=== PATIENT | female | born 1985 | race Caucasian/White ===

== ENCOUNTER 2016-11-19 16:36 | Emergency (ER) | payer BC ==
[2016-11-19 16:42] VITALS: TEMP 98.1; BMI 28.1
[2016-11-19] MEDS ORDERED: METOCLOPRAMIDE HCL INJECTION 10 MG/2 ML VIAL IVPB ONE (17:13)
[2016-11-19] MEDS ORDERED: ACETAMINOPHEN 1000 MG/100 ML VIAL (NON FORMULARY) IVPB ONE (17:13)
[2016-11-19] MEDS ORDERED: SODIUM CHLORIDE 1,000 ML IV STA (17:13)
[2016-11-19] MEDS ORDERED: ACETAMINOPHEN INJECTION 100 ML IVPB ONE (17:24)
[2016-11-19] MEDS ORDERED: METOCLOPRAMIDE HCL INJECTION 10 MG/2 ML VIAL ONE (17:24)
--- NOTE | 2016-11-19 17:28 | PDOC ---
History of Present Illness - General History Source: Patient Exam Limitations: No Limitations - History of Present Illness Initial Comments: 11/19/16 17:32 The patient is a 31 year old female, with a significant past medical history of migraines, who presents to the emergency department with blurred vision, headache, numbness in mouth and tingling in her hands bilaterally onset today 60 -90 minutes prior to presentation. She states that she was at work when the symptoms started. She describes her headache as a pressure, localized in the back of her head, moderate in severity, without radiation. The pain is exacerbated when she sees bright lights. She reports that she took Tylenol after the symptoms started with minimal relief of her symptoms. She describes her numbness as more pronounced on the right hand than the left and notes that her blurred vision has resolved. She notes that she noticed that at the time her pupils were irregular, one being bigger than the other, but that has resolved. She also notes that she has a history of migraines which causes her to have left sided numbness and visual flashes, which usually resolves when she takes a Tylenol or Topomax. She states that she was on Topomax for her migraines but her PMD took her off the medication over a year ago and she had not suffered a migraine since. She denies any family history of neurological disorders. The patient denies chest pain, shortness of breath and dizziness. Denies fever, chills, nausea, vomit, diarrhea and constipation. Allergies: None Past surgical history: None reported Social history: No alcohol, tobacco or drug use reported <Chino Poe - Last Filed: 11/19/16 17:34> - General History Source: Patient Exam Limitations: No Limitations <Evelio Hodges - Last Filed: 11/21/16 15:00> - General Chief Complaint: CVA/TIA Stated Complaint: NUMBNESS/SLURRED SPEECH Time Seen by Provider: 11/19/16 16:54 Past History <Chino Poe - Last Filed: 11/19/16 17:34> - Past Medical History Other medical history: MIGRAINES - Psycho/Social/Smoking Cessation Hx Anxiety: No Suicidal Ideation: No Smoking History: Never smoked Hx Alcohol Use: Yes (SOCIAL) Drug/Substance Use Hx: No Substance Use Type: None <Evelio Hodges - Last Filed: 11/21/16 15:00> - Past Medical History Allergies/Adverse Reactions: Allergies Allergy/AdvReac Type Severity Reaction Status Date / Time No Known Allergies Allergy Verified 11/19/16 16:42 Home Medications: Ambulatory Orders Acetaminophen [Tylenol] 650 mg PO Q4H PRN #30 tablet 11/19/16 Metoclopramide HCl [Reglan] 10 mg PO Q6H PRN #20 tablet 11/19/16 Review of Systems - Review of Systems Able to Perform ROS?: Yes Comments:: 11/19/16 17:32 GENERAL/CONSTITUTIONAL: No fever or chills. No weakness. HEAD, EYES, EARS, NOSE AND THROAT: +Blurred vision. No ear pain or discharge. No sore throat. CARDIOVASCULAR: No chest pain or shortness of breath RESPIRATORY: No cough, wheezing, or hemoptysis. GASTROINTESTINAL: No nausea, vomiting, diarrhea or constipation. GENITOURINARY: No dysuria, frequency, or change in urination. MUSCULOSKELETAL: No joint or muscle swelling or pain. No neck or back pain. SKIN: No rash NEUROLOGIC: +Headache, tingling on bilateral hands. No vertigo, loss of consciousnes ENDOCRINE: No increased thirst. No abnormal weight change HEMATOLOGIC/LYMPHATIC: No anemia, easy bleeding, or history of blood clots. ALLERGIC/IMMUNOLOGIC: No hives or skin allergy. <Chino Poe - Last Filed: 11/19/16 17:34> *Physical Exam - Vital Signs Last Vital Signs Temp Pulse Resp BP Pulse Ox 98.1 F 101 H 20 149/91 100 11/19/16 16:39 11/19/16 16:39 11/19/16 16:39 11/19/16 16:39 11/19/16 16:39 - Physical Exam Comments: 11/19/16 17:32 GENERAL: Awake, alert, and fully oriented, in no acute distress HEAD: No signs of trauma, normocephalic, atraumatic EYES: PERRLA, EOMI, sclera anicteric, conjunctiva clear ENT: Auricles normal inspection, hearing grossly normal, nares patent, oropharynx clear without exudates. Moist mucosa NECK: Normal ROM, supple, no lymphadenopathy, JVD, or masses LUNGS: No distress, speaks full sentences, clear to auscultation bilaterally HEART: Regular rate and rhythm, normal S1 and S2, no murmurs, rubs or gallops, peripheral pulses normal and equal bilaterally. ABDOMEN: Soft, nontender, normoactive bowel sounds. No guarding, no rebound. No masses EXTREMITIES: Normal inspection, Normal range of motion, no edema. No clubbing or cyanosis. NEUROLOGICAL: Cranial nerves II through XII grossly intact. Normal speech, normal gait, no focal sensorimotor deficits. Subjective parasthesias along the left upper extremity. 5/5 strength in upper and lower extremities bilaterally. No pronator drift. No Dysmetria. Normal heel to [place]. SKIN: Warm, Dry, normal turgor, no rashes or lesions noted. <Chino Poe - Last Filed: 11/19/16 17:34> - Vital Signs Last Vital Signs Temp Pulse Resp BP Pulse Ox 98.1 F 101 H 20 149/91 100 11/19/16 16:39 11/19/16 16:39 11/19/16 16:39 11/19/16 16:39 11/19/16 16:39 - Physical Exam Comments: 11/21/16 14:59 CORRECTION TO SCRIBE NOTE: CN II- XII is intact, not grossly intact. <Evelio Hodges - Last Filed: 11/21/16 15:00> ED Treatment Course - LABORATORY CBC & Chemistry Diagram: 11/19/16 17:20 - Medications Given in the ED: ED Medications Discontinued Medications Generic Name Dose Route Start Last Admin Trade Name Manoloq PRN Reason Stop Dose Admin Acetaminophen 1,000 mg 11/19/16 17:13 11/19/16 17:28 Ofirmev Injection - IVPB 11/19/16 17:14 1,000 mg ONCE ONE Administration Metoclopramide HCl 10 mg 11/19/16 17:13 11/19/16 17:28 Reglan Injection - IVPB 11/19/16 17:14 10 mg ONCE ONE Administration <Cihno Poe - Last Filed: 11/19/16 17:34> - LABORATORY CBC & Chemistry Diagram: 11/19/16 17:45 11/19/16 17:20 <Evelio Hodges - Last Filed: 11/21/16 15:00> Medical Decision Making - Medical Decision Making 11/19/16 17:42 A portion of this note was documented by scribe services under my direction. I have reviewed the details of the note, within reason, and agree with the documentation with the following case summary and management plan written by me. Patient treated in the ED. Nursing notes are reviewed and incorporated into the medical decision-making. Vital signs reviewed. Peripheral IV access obtained by the nurse, laboratory studies are drawn and sent, reviewed and interpreted by myself. Vital Signs Temp Pulse Resp BP Pulse Ox 98.1 F 101 H 20 149/91 100 11/19/16 16:39 11/19/16 16:39 11/19/16 16:39 11/19/16 16:39 11/19/16 16:39 31-year-old female with past medical history of complex migraines presents with headache and atypical neural features. Patient reports that she was doing well this morning. When she was at work, at approximately 3 PM, patient start develop flashes and a right eye and an occipital headache. She felt tingling in her left upper extremities. She also felt some numbness sensation in her mouth and her tongue. She also reports some intermittent right upper and right lower extremity tingling as well. Then headache is worsened and the patient came to the ED. Patient reports that she was on Topamax for migraines prior in the past but discontinued a year ago in order to get . Patient reported that her typical migraines consists of developing flashes in the right eye, posterior headaches, and left-sided numbness. Patient has no family history of stroke. Patient wishes to defer on head CT given the radiation exposure. I agree that we can defer on head CT at this time. This is likely complex migraines. We'll obtain labs and treat symptoms and reassess. 11/19/16 18:16 CBC, BMP 11/19/16 17:45 11/19/16 17:20 CMP Sodium 138 mmol/L (136-145) 11/19/16 17:20 Potassium 4.0 mmol/L (3.5-5.1) 11/19/16 17:20 Chloride 102 mmol/L (98-107) 11/19/16 17:20 Carbon Dioxide 24 mmol/L (21-32) 11/19/16 17:20 Anion Gap 12 (8-16) 11/19/16 17:20 BUN 10 mg/dL (7-18) 11/19/16 17:20 Creatinine 0.7 mg/dL (0.55-1.02) 11/19/16 17:20 Creat Clearance w eGFR > 60 (>60) 11/19/16 17:20 Random Glucose 80 mg/dL (74-106) 11/19/16 17:20 Calcium 8.6 mg/dL (8.5-10.1) 11/19/16 17:20 Total Bilirubin 0.6 mg/dL (0.2-1.0) 11/19/16 17:20 AST 22 U/L (15-37) 11/19/16 17:20 ALT 22 U/L (12-78) 11/19/16 17:20 Alkaline Phosphatase 37 U/L (45-117) L 11/19/16 17:20 Total Protein 6.8 g/dl (6.4-8.2) 11/19/16 17:20 Albumin 4.0 g/dl (3.4-5.0) 11/19/16 17:20 Serum , Qual Negative 11/19/16 17:20 Labs reviewed. Patient reports feeling significantly better and would like go home. Will give referral to a neurologist. Return precautions given. Discharge diagnosis: complex migraines I discussed the physical exam findings, ancillary test results and final diagnoses with the patient. I answered all of the patient's questions. The patient was satisfied with the care received and felt comfortable with the discharge plan and treatment plan. The patient will call their primary care physician within 24 hours to arrange follow-up and will return to the Emergency Department with any new, persistant or worsening symptoms. <Evelio Hodges - Last Filed: 11/21/16 15:00> *DC/Admit/Observation/Transfer - Attestations Scribe Attestion: 11/19/16 17:33 Documentation prepared by Chino Poe, acting as durable medical equipment technician for Evelio Hodges MD <[place] Poe - Last Filed: 11/19/16 17:34> - Discharge Dispostion Admit: No <Evelio Hodges - Last Filed: 11/21/16 15:00> Diagnosis at time of Disposition: Migraine Qualifiers: Migraine type: unspecified Status migrainosus presence: without status migrainosus Intractability: not intractable Qualified Code(s): G43.909 - Migraine, unspecified, not intractable, without status migrainosus - Discharge Dispostion Disposition: HOME Condition at time of disposition: Improved - Prescriptions Prescriptions: Metoclopramide HCl [Reglan] 10 mg PO Q6H PRN #20 tablet PRN Reason: Headache/Nausea Acetaminophen [Tylenol] 650 mg PO Q4H PRN #30 tablet PRN Reason: Headache - Referrals Referrals: Vaughn Kulkarni MD [Staff Physician] - - Patient Instructions Printed Discharge Instructions: DI for Migraine Additional Instructions: Take 650 mg tylenol every 4 hours as needed for headache. For additional relief, you may take a tablet of reglan every 6 hours as needed for headache. If you need an neurologist, please make an appointment with one of ours. Please drink plenty of fluids and rest. He may take several days before your symptoms improved. These medications in case you get are safe.
[2016-11-19 17:41] LABS: BASOPHIL 0.4 % (0-2.0); EOSINOPHIL 0.6 % (0-4.5); MCH 31.1 pg (25.7-33.7); MCHC 34.9 g/dl (32.0-36.0); MEAN CELL VOLUME 89.2 fl (80-96); MEAN PLT VOLUME 8.5 fl (7.5-11.1); NEUTROPHILS 66.9 % (42.8-82.8); PLATELET COUNT 245 K/MM3 (134-434); RDW 12.1 % (11.6-15.6); WHITE BLOOD COUNT 7.1 K/mm3 (4.0-10.0)
[2016-11-19 18:02] LABS: ALK PHOS 37 U/L (45-117); ANION GAP 12 (8-16); BILIRUBIN,TOTAL 0.6 mg/dL (0.2-1.0); CALCIUM 8.6 mg/dL (8.5-10.1); CO2 24 mmol/L (21-32); CREATININE 0.7 mg/dL (0.55-1.02); GLUCOSE,RANDOM 80 mg/dL (74-106); SGPT/ALT 22 U/L (12-78); TOT PROT 6.8 g/dl (6.4-8.2)
[2016-11-19 18:03] LABS: SGOT/AST 22 U/L (15-37)
[2016-11-19 18:38] VITALS: BP 119/67; PULSE 82
== END 2016-11-19 18:37 | disposition home or self-care (01) ==
LOC: JER 16:36
PROC: 3E0337Z Introduction of Electrolytic and Water Balance Substance into Peripheral Vein, Percutaneous Approach (ICD-10-PCS; principal; 2016-11-19)
PROC: 3E033NZ Introduction of Analgesics, Hypnotics, Sedatives into Peripheral Vein, Percutaneous Approach (ICD-10-PCS; 2016-11-19)
PROC: 3E033GC Introduction of Other Therapeutic Substance into Peripheral Vein, Percutaneous Approach (ICD-10-PCS; 2016-11-19)
DX: G43.809 Other migraine, not intractable, without status migrainosus (principal)
CPT/HCPCS: 36415; 80053; 84703; 85025; 99282-25

== ENCOUNTER → 2023-03-25 | Emergency (ER) | payer BC ==
[2023-03-25 12:41] VITALS: BP 125/88; PULSE 76; RESP 14; TEMP 98; BMI 29.2
== END | disposition left against medical advice (07) ==
LOC: JER 12:12
DX: R42 Dizziness and giddiness (principal)
CPT/HCPCS: 99281-25

== ENCOUNTER 2023-12-03 09:50 | Emergency (ER) | payer BC ==
[2023-12-03] MEDS: SODIUM CHLORIDE 0.9% 500 ML INFUS.BAG IV ONE (10:45)
[2023-12-03] MEDS ORDERED: ACETAMINOPHEN INJECTION 100 ML IVPB ONE (10:49)
[2023-12-03] MEDS ORDERED: METOCLOPRAMIDE HCL INJECTION 10 MG/2 ML VIAL ONE (10:49)
[2023-12-03 10:53] LABS: BASO % 0.2 % (0-2.0); EOS % 0.6 % (0-4.5); HEMATOCRIT 39.2 % (32.4-45.2); HEMOGLOBIN 13.5 GM/dL (10.7-15.3); LYMPH % 15.3 % (8-40); MCH 31.2 pg (25.7-33.7); MCHC 34.3 g/dl (32.0-36.0); MEAN CELL VOLUME 90.8 fl (80-96); MEAN PLT VOLUME 8.6 fl (7.5-11.1); MONO % 6.5 % (3.8-10.2); NEUT % 77.4 % (42.8-82.8); PLATELET COUNT 216 10^3/uL (134-434); RBC 4.32 M/mm3 (3.60-5.2); WHITE BLOOD COUNT 8.9 K/mm3 (4.0-10.0)
[2023-12-03] MEDS: ACETAMINOPHEN 1000 MG/100 ML BAG IVPB ONE (10:55)
[2023-12-03] MEDS: METOCLOPRAMIDE HCL INJECTION 10 MG/2 ML VIAL IVPB ONE (10:55)
[2023-12-03 10:59] LABS: INR 0.9 (0.83-1.09); PROTHROMBIN TIME (PATIENT) 10.5 SEC (9.7-13.0)
[2023-12-03 11:02] LABS: ACTIVATED PTT 27.4 SECONDS (25.2-36.5)
[2023-12-03 11:18] LABS: POTASSIUM 4.2 mmol/L (3.5-5.1)
[2023-12-03 11:20] LABS: ALBUMIN 2.7 g/dl (3.4-5.0); CALCIUM 8.5 mg/dL (8.5-10.1)
[2023-12-03 11:22] LABS: BLOOD UREA NITROGEN 4.4 mg/dL (7-18)
[2023-12-03 11:24] LABS: CREATININE 0.6 mg/dL (0.55-1.3)
[2023-12-03 11:25] LABS: TOT PROT 6.1 g/dl (6.4-8.2)
[2023-12-03 11:27] LABS: BILIRUBIN,TOTAL 0.4 mg/dL (0.2-1)
[2023-12-03 11:41] LABS: EPI CELLS 32 /uL (0-25.1); HYALINE CASTS 0 /uL (0-3.1); PH,URINE 6.5 (5.0-8.0); URINE APPEARANCE CLEAR; URINE BACTERIA 846 /uL (0-1359); URINE BILIRUBIN NEGATIVE (NEGATIVE); URINE COLOR YELLOW; URINE GLUCOSE (UA) NEGATIVE (NEGATIVE); URINE KETONE TRACE (NEGATIVE); URINE LEUK ESTERASE 1+ (NEGATIVE); URINE NITRITE NEGATIVE (NEGATIVE); URINE PROTEIN NEGATIVE (NEGATIVE); URINE RBC 11 /uL (0-23.9); URINE UROBILINOGEN 0.2 mg/dL (0.2-1.0); URINE WBC 43 /uL (0-25.8)
[2023-12-03 12:17] VITALS: BMI 34.4
[2023-12-03 12:57] VITALS: BP 112/67; PULSE 67; RESP 18; TEMP 97.9
== END 2023-12-03 13:10 | disposition home or self-care (01) ==
LOC: JER 09:50
PROC: 3E033NZ Introduction of Analgesics, Hypnotics, Sedatives into Peripheral Vein, Percutaneous Approach (ICD-10-PCS; principal; 2023-12-03)
PROC: 3E033GC Introduction of Other Therapeutic Substance into Peripheral Vein, Percutaneous Approach (ICD-10-PCS; 2023-12-03)
DX: O26.892 Other specified pregnancy related conditions, second trimester (principal); R42 Dizziness and giddiness; R20.0 Anesthesia of skin; R11.0 Nausea; Z3A.26 26 weeks gestation of pregnancy; O99.352 Diseases of the nervous system complicating pregnancy, second trimester; G43.909 Migraine, unspecified, not intractable, without status migrainosus; O23.92 Unspecified genitourinary tract infection in pregnancy, second trimester; R82.71 Bacteriuria
CPT/HCPCS: 36415; 70450-TC; 80053; 80061; 81003; 82550; 82962; 83036; 84484; 85025; 85610; 85730; 86850; 86900; 86901; 93005; 93010; 99285-25; J0131